=== PATIENT | female | born 1950 | race Caucasian/White ===

== ENCOUNTER 2021-10-18 18:51 | Emergency (ER) | payer MEDICARE ==
[~2021-10-18] VITALS: Ht 172.7 cm; Wt 97.5 kg
--- NOTE | 2021-10-18 18:51 | NUR ---
TO ER BED 4, [id number] FROM DAUGHTER'S CAR C/O WITNESSED SEIZURE LASTED FOR 2MINS, WAS JUST PICKED UP BY DAUGHTER FROM [employer] [place] FROM [place], POST ICTAL, CONNECTED TO SUNIL HUNT, SEIZURE PRECAUTION IMPLEMENTED
[2021-10-18] MEDS ORDERED: LEVETIRACETAM (500MG) 500 MG in IV NS 0.9% 100 ML IV ONE (19:30)
[2021-10-18 19:49] LABS: CALCIUM, SERUM 8.7 mg/dL (8.5-10.1); CARBON DIOXIDE 15 mmol/L (21-32); CHLORIDE 100 mmol/L (98-107); CREATININE 1.6 mg/dL (0.6-1.3); GLUCOSE 222 mg/dL (74-106); POTASSIUM 3.2 mmol/L (3.5-5.1); SODIUM SERUM 134 mmol/L (136-145); UREA NITROGEN, BLOOD 17 mg/dL (7-18)
[2021-10-18 19:56] LABS: ALANINE AMINOTRANSFERASE 36 U/L (12-78); ALBUMIN 3.3 g/dL (3.4-5.0); ALCOHOL, BLOOD < 3 mg/dL (0-0); ALKALINE PHOSPHATASE 101 U/L (46-116); ASPARTATE AMINOTRANSFERASE 32 U/L (15-37); BILIRUBIN,DIRECT 0.1 mg/dL (0.0-0.2); BILIRUBIN,TOTAL 0.4 mg/dL (0.2-1.0); TOTAL PROTEIN, SERUM 7.9 g/dL (6.4-8.2)
--- NOTE | 2021-10-18 19:57 | NUR ---
ADDENDUM: Intravenous End Time Documentation: Normal saline 1 liter (IV-WO) : start time:2036 PM ; end time:2136 PM : IV site:RAC PIV # 20 Port # 1 Keppra 1 gram IVPB: start time: 1956 PM ; end time:2056 PM : IV site: RAC PIV # 20 Port # 2
[2021-10-18 20:25] LABS: BASOPHILS % (AUTO) 0.2 % (0.0-2.0); EOSINOPHILS % (AUTO) 0.1 % (0.0-6.0); HEMATOCRIT 45 % (33-45); HEMOGLOBIN 14.5 g/dL (11.5-14.8); LYMPHOCYTES # (AUTO) 1.1 K/uL (0.8-4.8); LYMPHOCYTES % (AUTO) 15.3 % (20.0-44.0); MEAN CORPUSCULAR HGB CONC 33 g/dl (31.0-36.0); MEAN CORPUSCULAR VOLUME 89 fL (82-100); MONOCYTES # (AUTO) 0.5 K/uL (0.1-1.30); MONOCYTES % (AUTO) 6.6 % (2.0-12.0); NEUTROPHILS # (AUTO) 5.7 K/uL (1.8-8.9); NEUTROPHILS % (AUTO) 77.8 % (43.0-81.0); PLATELET COUNT (AUTO) 167 K/uL (150-450); WHITE BLOOD COUNT (AUTO) 7.3 K/uL (4.3-11.0)
[2021-10-18] MEDS ORDERED: IV NS 0.9% 1,000 ML IV ONE (20:30)
--- NOTE | 2021-10-18 20:59 | NUR ---
CALLED DAUGHTER FOR PICKUP, NO ANSWER. LEFT MESSAGE TO CALL BACK.
--- NOTE | 2021-10-18 21:25 | NUR ---
Pt instructions given to pt. pt discharged in stable condition
[2021-10-18 21:41] VITALS: BP 138/88
== END 2021-10-18 21:42 | disposition home or self-care (01) ==
LOC: ER 19:08
DX: G40.909 Epilepsy, unspecified, not intractable, without status epilepticus (principal); I10 Essential (primary) hypertension
CPT/HCPCS: 36415; 70450; 71045; 80048; 80076; 80320; 82962; 85025; 85730; 96365; 99285; J1953 ×2; J7030 ×2; G0480